=== PATIENT | male | born 1980 | race Caucasian/White ===

== ENCOUNTER 2022-06-18 09:19 | Emergency (ER) | payer BC ==
[~2022-06-18] VITALS: Ht 175.3 cm; Wt 79.0 kg
[2022-06-18 09:37] VITALS: BP 136/88
[2022-06-18] MEDS ORDERED: ALBU90AE INH (09:59)
== END 2022-06-18 10:06 | disposition home or self-care (01) ==
LOC: ER 09:31
DX: U07.1 COVID-19 (principal); R05.9 Cough, unspecified; J02.9 Acute pharyngitis, unspecified; E11.9 Type 2 diabetes mellitus without complications; I50.9 Heart failure, unspecified
CPT/HCPCS: 99283

== ENCOUNTER 2022-06-28 23:17 | Emergency (ER) | payer BC ==
[~2022-06-28] VITALS: Ht 175.3 cm; Wt 78.0 kg
[~2022-06-28 23:17] MED LIST: ALBU90AE INH
[2022-06-29] MEDS ORDERED: SODIUM CHLORIDE 0.9% 1,000 ML IV ONE ×2 (00:30→05:45)
[2022-06-29 01:02] LABS: BASOPHILS % 0.9 % (0.0-2.0); EOSINOPHILS % 0.4 % (0.0-5.0); HEMATOCRIT. 46.8 % (42.0-52.0); HEMOGLOBIN. 16.9 g/dL (14.0-18.0); LYMPHOCYTES % 40.8 % (20.0-50.0); MEAN CORPUSCULAR HEMOGLOBIN 31.2 pg (28.0-32.0); MEAN CORPUSCULAR VOLUME 86.4 fL (80.0-94.0); MEAN PLATELET VOLUME 7.4 fl (7.4-10.4); MONOCYTES % 7.9 % (2.0-8.0); PLATELET 315 x1000/uL (130-400); RED BLOOD CELL COUNT 5.41 mill/uL (4.7-6.1); RED CELL DISTRIBUTION WIDTH 14.6 % (11.6-14.6)
[2022-06-29 01:14] LABS: CHLORIDE 99 mEq/L (98-107)
[2022-06-29 01:32] LABS: BETA HYDROXYBUTYRATE 0.3 mMol/L (0.0-0.3)
[2022-06-29] MEDS ORDERED: ASPIRIN 325MG EC TABLET PO ONE (02:00)
[2022-06-29 02:13] LABS: CLARITY URINE CLEAR (CLEAR); COLOR URINE YELLOW (YELLOW); KETONES URINE TRACE (NEGATIVE); LEUKOCYTE ESTERASE URINE NEGATIVE (NEGATIVE); NITRITE URINE NEGATIVE (NEGATIVE); OCCULT BLOOD URINE NEGATIVE (NEGATIVE); PROTEIN URINE NEGATIVE (NEGATIVE); SPECIFIC GRAVITY URINE 1.033 (1.005-1.030)
[2022-06-29] MEDS ORDERED: INSULIN LISPRO 100 UNITS/ML SUBCUT ONE (02:15)
[2022-06-29 02:26] LABS: *AMPHETAMINES SCREEN URINE NEGATIVE (NEGATIVE); *BARBITURATES SCREEN URINE NEGATIVE (NEGATIVE); *BENZODIAZEPINES SCREEN URINE NEGATIVE (NEGATIVE); *COCAINE SCREEN URINE NEGATIVE (NEGATIVE); CANNABINOID URINE SCREEN NEGATIVE (NEGATIVE); METHADONE URINE SCREEN NEGATIVE (NEGATIVE); OPIATES URINE SCREEN NEGATIVE (NEGATIVE); PHENCYCLIDINE URINE SCREEN NEGATIVE (NEGATIVE)
[2022-06-29 04:36] LABS: ETHANOL BLOOD < 10 mg/dL
[2022-06-29] MEDS ORDERED: ONDANSETRON HCL 4MG/2ML INJ IV ONE (05:45)
[2022-06-29 09:11] LABS: AMYLASE 81 IU/L (25-115)
[2022-06-29 11:09] VITALS: BP 151/79
== END 2022-06-29 11:22 ==
LOC: ER 23:31
DX: K85.90 Acute pancreatitis without necrosis or infection, unspecified (principal); E11.65 Type 2 diabetes mellitus with hyperglycemia; R11.2 Nausea with vomiting, unspecified; R56.9 Unspecified convulsions; Z88.6 Allergy status to analgesic agent; Z20.822 Contact with and (suspected) exposure to COVID-19
CPT/HCPCS: 36415; 71045; 76700; 80053; 80305; 80320; 81003; 82010; 82150; 82962; 83690; 83880; 83930; 84484; 85025; 85379; 87426; 93005; 96360; 96361; 96372; 99285; C9803; J1815; J2405; J7030; G0480